=== PATIENT | male | born 1955 | race African-American/Black ===

== ENCOUNTER 2018-02-15 18:39 | Emergency (ER) | payer OTHER, SELFPAY ==
[2018-02-15] MEDS ORDERED: Sodium Chloride 0.9% 1,000 ML ONE ×2 (18:47→20:50)
[2018-02-15 19:07] LABS: #Basophils 0.1 thou/uL (0.0-0.2); #Eosinphils 0.1 thou/uL (0.0-0.7); #Monocytes 0.8 thou/uL (0.11-0.59); #Neutrophils 5.5 thou/uL (1.40-6.50); %Basophils 1.5 % (0.0-1.0); %Eosinophils 1.4 % (0.0-10.0); %Lymphocytes 31.4 % (21.0-51.0); %Monocytes 8.7 % (0.0-10.0); Hemoglobin 17.2 g/dL (14.0-18.0); Mean Corpuscular HGB CONC 31.9 g/dL (32.0-36.0); Mean Corpuscular Hemoglobin 27.5 pg (27.0-31.0); Mean Platelet Volume 8.5 fL (7.4-10.4); Platelet Count 289 thou/uL (130-400); RBC Distribution Width 11.9 % (11.5-14.5); Red Blood Cell (RBC) Count 6.27 mill/uL (4.70-6.10); White Blood Cell (WBC) Count 9.7 thou/uL (4.8-10.8)
--- NOTE | 2018-02-15 19:12 | RAD ---
RADIOGRAPH CHEST 1 VIEW: Date: 02/15/18 Time: 6:42 p.m. HISTORY: 62-year-old male status post syncope and seizure. COMPARISON: 09/13/17. FINDINGS: The patient is rotated to the right. Furthermore, this is a portable supine image. Supine positioning makes this insensitive for the detection of pneumothorax. Prominent interstitial markings bilaterall y could be due to the supine positioning which is apparently a change compared to the prior study. Ag ain noted are the sternotomy wires and multiple left sided surgical clips over the cardiac shadow. No gross consolidation. IMPRESSION: 1. Limited evaluation due to supine positioning. 2. Status post coronary artery bypass graft surgery is evidence of coronary atherosclerotic dise aseJc [place] [] POS: [facility]
[2018-02-15 19:17] LABS: ALT (SGPT) 41 U/L (8-55); AST (SGOT) 24 U/L (5-34); Albumin 4.5 g/dL (3.4-4.8); Alkaline Phosphatase 106 U/L (40-150); Anion Gap 19 mmol/L (10-20); BUN (Urea Nitrogen) 16 mg/dL (8.4-25.7); Bilirubin, Total 0.7 mg/dL (0.2-1.2); CK (CPK) 177 U/L (30-200); Calc. Creatinine Clearance 0 mL/min (70-130); Calcium 10.2 mg/dL (7.8-10.44); Carbon Dioxide 17 mmol/L (23-31); Chloride 108 mmol/L (98-107); Estimated GFR-MDRD 53; Globulin 3.3 g/dL (2.4-3.5); Glucose 121 mg/dL (80-115); Potassium 3.5 mmol/L (3.5-5.1); Protein, Total 7.8 g/dL (5.8-8.1); Sodium 140 mmol/L (136-145)
--- NOTE | 2018-02-15 19:17 | CT ---
CT BRAIN NONCONTRAST: 02/15/18 HISTORY: 62-year-old male with altered mental status. FINDINGS: There is no midline shift or any other mass effect. There is no evidence of acute intracranial hemor rhage, large cortical infarct, obstructive hydrocephalus, or extraaxial fluid collection. The calvar ium is intact. IMPRESSION: No acute intracranial findings. jn [] POS: [facility]
[2018-02-15 19:19] LABS: CKMB 1.7 ng/mL (0-6.6); Troponin I Less than 0.010 ng/mL (< 0.028)
[2018-02-15 19:26] LABS: Acetaminophen Less than 6.0 mcg/mL (10.0-30.0); Alcohol 20 mg/dL (Less than 10); Lipase 41 U/L (8-78); Salicylate Less than 8.0 mg/dL (15.0-30.0)
[2018-02-15 19:54] LABS: Bilirubin Negative (Negative); Blood, Urine Negative (Negative); Clarity Clear (Clear); Glucose, Urine (Dipstick) Negative (Negative); Leukocyte Negative (Negative); Nitrite Negative (Negative); Protein, Urine (Dipstick) Negative (Neg-Trace); Urobilinogen 0.2 mg/dL (0.2-1.0); pH, Urine 5.5 (5.0-9.0)
--- NOTE | 2018-02-15 19:57 | CT ---
CTA THORAX WITH CONTRAST: 02/15/18 at 7:32 p.m. (Computed Tomographic Angiography, chest(noncoronary) with contrast material, and image postprocessin g) (PE protocol) HISTORY: 62-year-old male with dyspnea. TECHNIQUE: IV injection of iodinated contrast: 96 mL Isovue 370. Scan acquisition timing attempted to coincide with iodinated contrast bolus reaching maximal density in pulmonary arteries. 3D MIP reconstructions. FINDINGS: There is dense contrast opacification of the lumen of the thoracic aorta, but faint, poor IV contrast opacification of the pulmonary arteries. There is no thromboembolism in the pulmonic trunk or in the left and right main pulmonary arteries, but their proximal and distal branches are difficult to eval uate for pulmonary thromboembolism because of poor IV contrast opacification of them. Thoracic aorta is normal in caliber, with no dissection or rupture. There is a small sliding hiatal hernia. No media stinal or hilar lymphadenopathy. No consolidation, pleural effusion, pulmonary edema, or pneumothorax . Trachea and major bronchi are patent and clear. Diffusely low hepatic attenuation represents fatty liver. Sternotomy wires. Surgical clips along the periphery of the heart. IMPRESSION: 1. Unfortunately, because of poor IV contrast bolus timing (and patient breathing motion artifac t), the branches of the left and right main pulmonary arteries cannot be evaluated for pulmonary thro mboembolism. 2. No pulmonary thromboembolism in the pulmonic trunk or the left and right main pulmonary arter ies. 3. Normal thoracic aorta. 4. Status post coronary artery bypass graft surgery is evidence for coronary atherosclerotic dis ease. 5. Hepatic steatosis. cecilia[] POS: [facility]
[2018-02-15 20:24] LABS: Amphetamine Not Detected (NotDetected); Barbiturates Screen Not Detected (NotDetected); Benzodiazepine Screen Not Detected (NotDetected); Cocaine Metabolite Screen Detected (NotDetected); Methadone Not Detected (NotDetected); Methamphetamine Not Detected (NotDetected); Opiate Screen Not Detected (NotDetected); Oxycodone Screen Not Detected (NotDetected); Phencyclidine (PCP) Not Detected (NotDetected); THC/Cannabinoid Screen Not Detected (NotDetected); Tricyclic Screen Not Detected (NotDetected)
[2018-02-15 20:25] LABS: Medtox Control Line Valid? VALID (VALID)
[2018-02-15] MEDS ORDERED: Nitroglycerin 2% Ointment 1 INCH/1 GM Packet ONE (20:50)
[2018-02-15] MEDS ORDERED: Aspirin 325 MG TAB ONE (20:50)
[2018-02-15] MEDS ORDERED: Enoxaparin Sodium 100 MG/ML SYRINGE ONE (21:11)
== END 2018-02-15 22:33 | disposition short-term general hospital (02) ==
LOC: NAV ERS 18:39
DX: R06.00 Dyspnea, unspecified (principal); R94.31 Abnormal electrocardiogram [ECG] [EKG]; R55 Syncope and collapse; I25.10 Atherosclerotic heart disease of native coronary artery without angina pectoris; E78.5 Hyperlipidemia, unspecified; I10 Essential (primary) hypertension; I25.2 Old myocardial infarction; Z79.899 Other long term (current) drug therapy; Z79.82 Long term (current) use of aspirin
CPT/HCPCS: 36416; 70450; 71045; 71275; 80053; 80306; 80307; 81003; 82550; 82553; 83605; 83690; 84146; 84443; 84484; 85025; 87040; 87086; 93005; 96360; 96361; 96372; J1650; J7050